=== PATIENT | female | born 2000 | race Caucasian/White ===

== ENCOUNTER 2020-08-04 10:37 | Emergency (ER) | payer BC, SELFPAY ==
--- NOTE | ~2020-08-04 | CT_ITS ---
EXAMINATION: CTA brain carotid DATE: 08/04/2020 12:33 INDICATION: Vision loss of left eye. TECHNIQUE: Computed tomographic angiography (CTA) of the head was performed without and with 100 mL O mnipaque-350 intravenous contrast. CTA of the neck was performed with intravenous contrast. Automated exposure control and iterative reconstruction technique were employed. The dose-length product was 1 595.27 mGy-cm. Maximum intensity projection and volume rendered 3D-reconstructions were created by orlando leslie technologist on a separate workstation. COMPARISON: None. FINDINGS: HEAD CTA: There is no intracranial hemorrhage, acute infarction, or abnormal intracranial mass lesion . The ventricles are normal in size. There is mild mucosal thickening in the paranasal sinuses. The m astoid air cells are normal. The orbits are normal. The vertebral arteries are codominant. There is n o significant stenosis of basilar artery or the posterior cerebral arteries. Right P1 posterior cereb ral artery segment is small, a normal variant. The posterior communicating arteries are normal. There is no significant stenosis of the intracranial internal carotid arteries or anterior or middle cereb ral arteries. Right A1 anterior cerebral artery segment is small or absent, a normal variant. There i s no aneurysm. NECK CTA: There are no pathologically enlarged lymph nodes. There is no significant stenosis of the v ertebral arteries. The cervical carotid arteries are normal. There is 0% stenosis of the proximal rig ht internal carotid artery relative to normal distal artery lumen diameter (NASCET criteria). There i s 0% stenosis of the proximal left internal carotid artery relative to normal distal artery lumen amador meter. The bones are unremarkable. IMPRESSION: 1. Normal brain. No aneurysm or significant intracranial arterial stenosis. 2. Normal neck arteries. Reviewed, dictated and finalized at location A.
[2020-08-04 10:41] VITALS: BP 138/78; PULSE 71; RESP 20; TEMP 36.3; O2SAT 100
--- NOTE | 2020-08-04 11:18 | ECG_ITS ---
Measurements Intervals [place] Rate: 82 P: 49 HI: 142 QRS: 14 QRSD: 86 T: 46 QT: 377 QTc: 441 Interpretive Statements SINUS RHYTHM WITH SINUS ARRHYTHMIA INCOMPLETE RIGHT BUNDLE BRANCH BLOCK BASELINE ARTIFACT- I, II, III, AVR, AVL, AVF, V1 BORDERLINE ECG Electronically Signed On 08-04-2020 12:15:08 CDT by Darryn Lee D.O.
[2020-08-04 11:39] LABS: Basophils Absolute Auto 0.1 K/mm3 (0.0-0.1); Basophils Percent Auto 0.5 % (0.2-1.2); Eosinophils Absolute Auto 0.2 K/mm3 (0-0.3); Eosinophils Percent Auto 1.8 % (0-4.4); Hematocrit 42.8 % (37.0-47.0); Hemoglobin 13.7 g/dL (12.0-15.0); Immature Granulocyte Absolute 0.04 K/mm3 (0.00-0.031); Immature Granulocyte Percent A 0.4 % (0-0.5); Lymphocytes Absolute Auto 2.09 K/mm3 (0.9-3.2); Lymphocytes Percent Auto 22.5 % (18.3-44.2); Mean Corpuscular Hemoglobin 30.4 pg (26-34); Mean Corpuscular Volume 94.9 fl (80-100); Monocytes Absolute Auto 0.6 K/mm3 (0.1-0.6); Monocytes Percent Auto 6.5 % (2.6-8.5); Neutrophils Absolute Auto 6.3 K/mm3 (1.3-6.7); Neutrophils Percent Auto 68.3 % (45.5-73.1); Platelet Count Result 321 k/mm3 (150-375); Red Blood Count 4.51 M/mm3 (4.2-5.4); Red Cell Distribution Width 12.2 % (11.5-14.5); White Blood Count 9.3 K/mm3 (4.5-10.0)
[2020-08-04 11:49] LABS: INR 0.9; Prothrombin Time 13.1 Seconds (11.1-14.7)
[2020-08-04 11:50] LABS: Partial Thromboplastin Time 27.5 SECONDS (22.3-36.8)
[2020-08-04 11:59] LABS: Anion Gap 4 mmol/L (8-16); Blood Urea Nitrogen 12 mg/dL (7-17); Calcium 9.1 mg/dL (8.4-10.2); Carbon Dioxide 29 mmol/L (22-30); Chloride 106 mmol/L (98-107); Estimated CRCL calculation 158 ml/min; Estimated Glomerular Filt Rate > 60; Glucose 109 mg/dL (65-105); Sodium 139 mmol/L (137-145)
--- NOTE | 2020-08-04 12:36 | ED.EYEPROB ---
HPI - Eye Problem General Chief complaint: Eye Problems Stated complaint: trouble seeing from left eye x2 weeks Time Seen by Provider: 08/04/20 10:59 Source: patient Mode of arrival: ambulatory Limitations: no limitations History of Present Illness HPI Narrative: Patient is a 20-year-old female who presents with loss of vision in the left eye that occurred 2-1/2 weeks ago patient notes in the superior visual field of the left eye she lost vision patient notes that this has persisted notes mild headache that is intermittent associated with it denies injury or trauma recent illness or similar occurrence. Patient did not seek help for this issue until today. Patient notes history of stigmatism but denies other visual problems. Patient on arrival per private vehicle in the room in no distress does not appear uncomfortable and denies any other focal neurologic deficits. Patient was unsure as to the relation but notes that she did have the [employer] vaccine several days prior to onset of symptoms Review of Systems Review of Systems: All systems reviewed & are unremarkable except as noted in HPI and below PMFSH Social History Social History (Updated 08/04/20 @ 12:38 by Power Kramer PA-C) Smoking status: Never smoker Exam Narrative: Exam Narrative: GENERAL: Well-appearing, well-nourished, and in no acute distress. HEAD: Normocephalic, atraumatic. EYES: PERRLA and EOMI. ENT: Nares clear, no rhinorrhea or epistaxis. Mucous membranes moist. CHEST: Clear to auscultation. No respiratory distress. No wheezes rales or rhonchi HEART: Regular rate and rhythm. No murmur heard. Normal peripheral pulses. EXTREMITIES: Normal range of motion. No edema. SKIN: Warm, dry, no rash. NEURO: No focal deficits. Alert and oriented x3. Cranial nerves II through XII grossly intact. Normal speech. Normal gait PSYCH: Normal mood and affect. Course Course Emergency Course: Discussed case with ophthalmology at [facility], Dr. Charles recommends that the patient can be evaluated on an outpatient basis given the clinical presentation findings. Consultations Consultation #1: Dr Charles at [facility] ophthalmology case was discussed in entirety patient was given an appointment for tomorrow at 10 AM however they do not take her insurance but would still see her as a private pay Date: 08/04/20 Time: 14:15 Vital Signs Vital signs: Vital Signs Temperature 97.3 F L 08/04/20 10:41 Pulse Rate 71 08/04/20 10:41 Respiratory Rate 20 08/04/20 10:41 Blood Pressure 138/78 08/04/20 10:41 Pulse Oximetry 100 08/04/20 10:41 Temperature 97.3 F L 08/04/20 10:41 Pulse Rate 71 08/04/20 10:41 Respiratory Rate 20 08/04/20 10:41 Blood Pressure 138/78 08/04/20 10:41 Pulse Oximetry 100 08/04/20 10:41 MDM - Eye Problem MDM Narrative Medical decision making narrative: Patient with vision loss in the left eye that occurred 2-1/2 weeks ago patient without other focal neurologic deficits or complaints presented for private vehicle with no high risk findings in the blood work or imaging will be discharged with follow-up with ophthalmology given reasons to return patient is aware of discussion with specialists. Patient provided with reasons to return. ABCs and vital signs intact and stable. There are no focal neurological deficits on exam. There is no history of fever, and neck is supple without meningismus, making meningitis unlikely. No traumatic history or signs of trauma on exam. No risk factors for CVA, risk factors reviewed. NO ocular signs on exam and in history to suggest acute glaucoma. Patient symptoms seem most consistent with retinal detachment. CTA of the brain and carotids was unremarkable for any acute findings Lab Data Result diagrams: 08/04/20 11:33 08/04/20 11:33 Labs: Lab Results 08/04/20 08/04/20 08/04/20 Range/Units 11:33 11:33 11:33 WBC 9.3 (4.5-10.0) K/mm3 RBC 4.51 (4.2-5.4) M/m
[2020-08-04 15:04] VITALS: BP 125/56; PULSE 66; RESP 18; TEMP 36.6; O2SAT 97
== END 2020-08-04 15:05 | disposition home or self-care (01) ==
PROVIDERS: Emergency Medicine Emergency Medical Services; Emergency Provider Emergency Medicine
DX: H54.62 Unqualified visual loss, left eye, normal vision right eye (principal)
CPT/HCPCS: 36415; 70496; 70498; 80048; 81025; 85025; 85610; 85730; 93005; 99284; Q9967

== ENCOUNTER 2021-12-22 10:14 | Emergency (ER) | payer BC, SELFPAY ==
[2021-12-22 10:29] VITALS: BP 136/81; PULSE 90; RESP 18; TEMP 36.7; O2SAT 100
--- NOTE | 2021-12-22 10:29 | ED.EAR ---
HPI - Ear Problem General Chief complaint: Ear Stated complaint: R ear infxn Time Seen by Provider: 12/22/21 10:23 History of Present Illness HPI Narrative: Patient is a 21-year-old female here for evaluation of right ear pain for the past 5 days. She states that the ear is inflamed and irritated and is leaking fluid. She additionally notes congestion and cough over the past several days as well. She took a COVID test yesterday that was negative. She also went to an urgent care facility who told her that her ear was inflamed, but elected to go with a watchful waiting approach to see if it would clear up on its own. Patient states that the pain worsened today and has caused her to lose sleep. Denies any fevers, chills, chest pain, shortness of breath. Related Data Allergies Allergy/AdvReac Type Severity Reaction Status Date / Time No Known Allergies Allergy Verified 12/22/21 10:32 Review of Systems Review of Systems: Gen.: Denies fevers or chills Eyes: Denies eye pain or visual change ENT: Reports right ear pain, congestion Respiratory: Denies shortness of breath or cough CV: Denies chest pain or palpitations GI: Denies abdominal pain nausea, emesis or diarrhea denies burning, urgency, frequency or hematuria Musculoskeletal: Denies back pain or muscle pain Neuro: Denies numbness, tingling, weakness or focal weakness Skin: Denies rash Except as documented, all other systems reviewed and negative PMFSH Social History Social History (Updated 08/04/20 @ 12:38 by Power Kramer, JESSICA) Smoking status: Never smoker Exam Narrative: APPEARANCE: Well appearing, no pain in distress, well-nourished. Head: Normocephalic and atraumatic. EYES: PERRLA/EOMI, conjunctivae clear NOSE: Nasal drainage noted. EARS: Right TM is injected and bulging, TM intact. Left TM is normal in appearance. No mastoid tenderness. External ear normal in appearance THROAT: Oropharynx is clear. Mucous membranes are moist. NECK: Supple. No adenopathy, no masses. RESPIRATORY: Airway patent, respirations nonlabored. Clear to auscultation bilaterally, no rales, rhonchi, wheezing. CARDIOVASCULAR: Regular rate and rhythm without murmurs, rubs, or gallops. ABDOMINAL: Normoactive bowel sounds. Soft, nontender, nondistended. No rebound tenderness or guarding. MUSCULOSKELETAL: Extremities are warm and well-perfused. Moves all extremities well. No edema. NEURO: Normal speech. No focal neurologic deficits. SKIN: Skin is warm and dry. No rashes. PSYCHIATRIC: Normal affect/mood.. Course Vital Signs Vital signs: Vital Signs Temperature 98.0 F 12/22/21 10:29 Pulse Rate 90 12/22/21 10:29 Respiratory Rate 18 12/22/21 10:29 Blood Pressure 136/81 12/22/21 10:29 Pulse Oximetry 100 12/22/21 10:29 Oxygen Delivery Room Air 12/22/21 10:29 Temperature 98.0 F 12/22/21 10:29 Pulse Rate 90 12/22/21 10:29 Respiratory Rate 18 12/22/21 10:29 Blood Pressure 136/81 12/22/21 10:29 Pulse Oximetry 100 12/22/21 10:29 Oxygen Delivery Room Air 12/22/21 10:29 Medical Decision Making [facility] Narrative Medical decision making narrative: 21-year-old female here for evaluation of right ear pain over the past several days in conjunction with upper respiratory infectious type symptoms. Home COVID test is negative. Right TM is bulging and injected, consistent with otitis media. I have a low suspicion at this time for mastoiditis, malignant otitis externa, herpes or conroy su syndrome, or retained foreign body. She will be prescribed antibiotics and given reasons to return to the emergency department. Vital Signs Vital Signs: Vital Signs Temperature 98.0 F 12/22/21 10:29 Pulse Rate 90 12/22/21 10:29 Respiratory Rate 18 12/22/21 10:29 Blood Pressure 136/81 12/22/21 10:29 Pulse Oximetry 100 12/22/21 10:29 Oxygen Delivery Room Air 12/22/21 10:29 Temperature 98.0 F 12/22/21 10:29 Pulse Rate 90 12/22/21
== END 2021-12-22 11:04 | disposition home or self-care (01) ==
PROVIDERS: Emergency Provider Emergency Medicine
DX: H66.91 Otitis media, unspecified, right ear (principal)
CPT/HCPCS: 99283